=== PATIENT | female | born 2000 | race Caucasian/White ===

== ENCOUNTER 2023-01-02 11:34 | Emergency (ER) | payer OTHER, SELFPAY ==
--- NOTE | ~2023-01-02 | CT_ITS ---
EXAMINATION: CT abdomen pelvis w con INDICATION: Right lower quadrant abdominal pain TECHNIQUE: Computed tomographic images of the abdomen and pelvis were obtained after the administrati on of 100 cc of Omnipaque 350 intravenous contrast. The dose-length product (DLP) was 292.85 mGy-cm. Automated exposure control and iterative reconstruction technique were employed. COMPARISON: None available FINDINGS: The lung bases are clear. The heart size is normal. Punctate calcifications in an otherwise normal spleen likely represent healed granulomatous disease. The liver, pancreas, gallbladder, and a drenal glands are normal. The kidneys are unremarkable. No pathologically enlarged abdominal or pelvi c lymph nodes are identified. No free intraperitoneal gas or evidence of bowel obstruction. A small v olume of free fluid in the pelvis is likely physiologic. The appendix is not definitely identified. IMPRESSION: 1. No CT correlate for the patient's symptoms. Appendix not definitely identified. Reviewed, dictated and finalized at location A. IMPRESSION: 1. No CT correlate for the patient's symptoms. Appendix not definitely identifi ed.
--- NOTE | ~2023-01-02 | US_ITS ---
Pelvic ultrasound. Clinical History: Pelvic pain Technique: Realtime transabdominal and transvaginal scanning of the pelvis was performed. Color flow Doppler and Doppler spectral analysis were performed. Findings: The uterus is anteverted. The endometrial stripe has a thickness of 12 mm. No focal mass i s identified. The right ovary measures 2.9 x 2.3 x 3.9 cm. There is a mildly complex right ovarian cyst measuring 2 .3 cm in maximum diameter. The left ovary measures 1.7 x 1.1 x 1.3 cm. No significant left ovarian or adnexal mass is seen. Vascular flow present in both ovaries on Doppler spectral analysis. There is a small amount of free fluid in the cul de sac. Impression: 2.3 cm mildly complex right ovarian cyst, consistent with hemorrhagic cyst. Small amount of free fluid, nonspecific. Reviewed, dictated and finalized at [facility]. Impression: 2.3 cm mildly complex right ovarian cyst, consistent with hemorrhagic cyst. Small amount of free fluid, nonspecific.
[2023-01-02 11:36] VITALS: BP 125/78; PULSE 69; RESP 20; TEMP 36.7; O2SAT 100
[2023-01-02 11:58] LABS: Basophils Percent Auto 0.4 % (0.2-1.2); Eosinophils Absolute Auto 0.1 K/mm3 (0-0.3); Eosinophils Percent Auto 1.3 % (0-4.4); Hematocrit 41.2 % (37.0-47.0); Hemoglobin 13.7 g/dL (12.0-15.0); Immature Granulocyte Absolute 0.04 K/mm3 (0.00-0.031); Immature Granulocyte Percent A 0.4 % (0-0.5); Lymphocytes Absolute Auto 2.18 K/mm3 (0.9-3.2); Lymphocytes Percent Auto 21.3 % (18.3-44.2); Mean Corpuscular HGB Conc 33.3 g/dl (32-36); Mean Corpuscular Hemoglobin 31.1 pg (26-34); Mean Corpuscular Volume 93.6 fl (80-100); Mean Platelet Volume 11.3 fl (7.4-10.4); Monocytes Absolute Auto 0.7 K/mm3 (0.1-0.6); Monocytes Percent Auto 6.9 % (2.6-8.5); Neutrophils Absolute Auto 7.2 K/mm3 (1.3-6.7); Neutrophils Percent Auto 69.7 % (45.5-73.1); Platelet Count Result 318 k/mm3 (150-375); Red Cell Distribution Width 11.9 % (11.5-14.5); White Blood Count 10.3 K/mm3 (4.5-10.0)
[2023-01-02 11:59] LABS: Appearance Urine Clear (Clear); Bilirubin Urine Negative (Negative); Blood Urine Negative (Negative); Color Urine Yellow (Yellow); Glucose Urine UA Negative (Negative); Ketones Urine Negative (Negative); Leukocyte Esterase Ur Negative LEU/UL (Negative); Nitrate Urine Negative (Negative); Protein Urine Negative (Negative); Specific Grav Ur 1.011 (1.001-1.035); Urobilinogen Urine 0.2 mg/dL (<2.0)
[2023-01-02 12:00] LABS: Add Urine Microscopic? NO
[2023-01-02 12:07] LABS: Alanine Aminotransferase 24 U/L (6-35); Albumin Level 4.5 g/dL (3.5-5.1); Alkaline Phosphatase 54 U/L (38-126); Anion Gap 10 mmol/L (8-16); Aspartate Amino Transferase 30 U/L (14-36); Bilirubin,Total 1.2 mg/dL (0.2-1.3); Blood Urea Nitrogen 18 mg/dL (7-17); Calcium 9.1 mg/dL (8.4-10.2); Carbon Dioxide 27 mmol/L (22-30); Chloride 103 mmol/L (98-107); Estimated CRCL calculation 88 ml/min; Estimated Glomerular Filt Rate > 60; Glucose 93 mg/dL (65-110); Lipase 93 U/L (23-300); Potassium 4.2 mmol/L (3.4-5.0); Sodium 140 mmol/L (137-145)
--- NOTE | 2023-01-02 12:15 | ED.GENADULT ---
HPI - General Adult General Chief complaint: Abdominal Pain Stated complaint: abdominal pain Time Seen by Provider: 01/02/23 11:41 Source: patient Mode of arrival: ambulatory Limitations: no limitations History of Present Illness HPI narrative: This is a 22-year-old female who presents to the ED with chief complaint of sudden onset of right-sided abdominal pain beginning around 930 this morning. Patient states that she was just sitting around when this came on. She reports an 8 out of 10 sharp pain. Reports that it is in the right lower quadrant mostly. Does not radiate. Not associated with eating food this morning. She states that she is due to start her menstrual cycle soon but has never had one-sided pain like this before. Denies any fevers, chills, nausea, vomiting, back pain, flank pain, problems with bowel movements or urinary symptoms. Related Data Allergies Allergy/AdvReac Type Severity Reaction Status Date / Time No Known Allergies Allergy Verified 01/02/23 11:56 Review of Systems Review of Systems: All systems as dictated in HPI Exam Narrative: GENERAL: Well-appearing, well-nourished, and in no acute distress. HEAD: Normocephalic, atraumatic. EYES: PERRLA and EOMI. ENT: Nares clear, no rhinorrhea or epistaxis. Mucous membranes moist. Oropharynx without tonsillar hypertrophy exudate or other lesions. NECK: Supple. No adenopathy or masses. CHEST: No respiratory distress. Clear to auscultation. No wheezes rales or rhonchi HEART: Regular rate and rhythm. No murmur heard. Normal peripheral pulses. ABDOMEN: Tender in the left lower quadrant and right lower quadrant. Minimal tenderness in the right upper quadrant. Becomes tearful during palpation of the abdomen. Negative Carroll sign. Negative peritoneal sign. Soft, nondistended, normal active bowel sounds. MSK: Normal range of motion. No edema. SKIN: Warm, dry, no rash. NEURO: Alert and oriented x3. No focal deficits. PSYCH: Normal mood and affect. Course Course Emergency Course: Reevaluation 1530: Patient feeling much better. Vital Signs Vital signs: Vital Signs Temperature 98.1 F 01/02/23 11:36 Pulse Rate 69 01/02/23 11:36 Respiratory Rate 20 01/02/23 11:36 Blood Pressure 125/78 01/02/23 11:36 Pulse Oximetry 100 01/02/23 11:36 Oxygen Delivery Room Air 01/02/23 11:36 Temperature 98.5 F 01/02/23 15:41 Pulse Rate 74 01/02/23 15:41 Respiratory Rate 16 01/02/23 15:41 Blood Pressure 118/68 01/02/23 15:41 Pulse Oximetry 100 01/02/23 15:41 Oxygen Delivery Room Air 01/02/23 11:36 Medical Decision Making MDM Narrative Medical decision making narrative: This is a 22-year-old female who who presents to the ED with chief complaint of sudden onset right sided abdominal pain beginning this morning 3 hours prior to arrival. Vitals are normal. Exam reveals right lower quadrant, left lower quadrant tenderness. No rebound or guarding. Very slight leukocytosis of 10.3 today. CMP is unremarkable. UA is grossly normal. CT was ordered to rule out appendicitis and does not show any acute intra-abdominal findings. We decided to proceed with pelvic ultrasound and it does show evidence of mildly complex hemorrhagic cyst on that right side. Her symptoms certainly correlate with possible ruptured cyst versus hemorrhagic cyst. No evidence of any torsion. She feels much better after Toradol. Encouraged gynecologic follow-up for this and referral given. Pt will be discharged in stable condition. Return precautions given and supportive measures discussed. Pt is understanding and agreeable with plan for discharge and follow-up with [facility]. Vital Signs Vital Signs: Vital Signs Temperature 98.1 F 01/02/23 11:36 Pulse Rate 69 01/02/23 11:36 Respiratory Rate 20 01/02/23 11:36 Blood Pressure 125/78 01/02/23 11:36 Pulse Oximetry 100 01/02/23 11:36 Oxygen Delivery Room Air 01/02/23 11:36
[2023-01-02] MEDS: KETOROLAC 15 MG/ML VIAL (*BKC) IV PUSH (13:11)
[2023-01-02 15:41] VITALS: BP 118/68; PULSE 74; RESP 16; TEMP 36.9; O2SAT 100
== END 2023-01-02 15:43 | disposition home or self-care (01) ==
PROVIDERS: Emergency Medicine; Emergency Provider Physician Assistant
DX: N83.201 Unspecified ovarian cyst, right side (principal)
CPT/HCPCS: 36415; 74177; 76830; 76856; 80053; 81003; 81025; 83690; 85025; 96374; 99284; J1885; Q9967